=== PATIENT | male | born 1935 | race Caucasian/White ===

== ENCOUNTER → 2017-09-29 | Outpatient (CLI) | payer OTHER ==
[~2017-09-29] MED LIST: ABAT250V; ALBU90OI INH; AMLO5 PO; Allopurinol100 MG PO; Azopt10 ML RIGHTEYE; CEFD300 PO; Combigan Eye Dro5 ML; Combigan Eye Dro5 ML RIGHTEYE; LISI20 PO; METF500 PO; METO50ER PO; Omeprazole20 M1 PO; SIMV40 PO; SITA100T2 PO; TAMS.4ER PO; XARELTO20 MG PO
== END | disposition home or self-care (01) ==
LOC: LAB 11:31
DX: H16.002 Unspecified corneal ulcer, left eye (principal)
CPT/HCPCS: 87070; 87205

== ENCOUNTER 2017-12-20 11:19 | Inpatient (IN) | payer OTHER ==
[~2017-12-20] VITALS: Ht 180.3 cm; Wt 102.1 kg
[2017-12-20 11:49] LABS: BASOPHILS ABSOLUTE AUTO 0.03 K/mm3 (0.00-0.23); BASOPHILS PERCENT AUTO 0 % (0-2); EOSINOPHILS ABSOLUTE AUTO 0.07 K/mm3 (0.00-0.68); EOSINOPHILS PERCENT AUTO 1 % (0-6); Hematocrit 46.4 % (37.0-53.0); Hemoglobin 15.2 g/dL (13.5-17.5); IMMATURE GRAN ABSOLUTE AUTO 0.02 K/mm3 (0.00-0.10); IMMATURE GRAN PERCENT AUTO 0 % (0-1); LYMPHOCYTES ABSOLUTE AUTO 0.64 K/mm3 (0.84-5.20); LYMPHOCYTES PERCENT AUTO 8 % (21-46); MONOCYTES ABSOLUTE AUTO 0.34 K/mm3 (0.16-1.47); MONOCYTES PERCENT AUTO 4 % (4-13); Mean Corpuscular HGB 27.5 pg (26.0-34.0); Mean Corpuscular HGB Conc 32.8 g/dL (31.5-36.5); Mean Corpuscular Volume 84 fL (80-100); NEUTROPHILS ABSOLUTE AUTO 7.18 K/mm3 (1.96-9.15); NEUTROPHILS PERCENT AUTO 87 % (41-73); RDW Coefficient Variation 13.1 % (11.7-14.2); RDW Standard Deviation 40.3 fL (35.1-46.3); Red Blood Cell Count 5.52 M/mm3 (4.30-5.90); White Blood Cell Count 8.28 K/mm3 (4.00-11.30)
[2017-12-20 11:58] LABS: Mean Platelet Volume 10.5 fL (9.1-12.4); Platelet Count 119 K/mm3 (150-400)
[2017-12-20 12:05] LABS: Alanine Aminotransfer (ALT/SGP 19 U/L (12-78); Albumin, Blood 3.4 g/dL (3.4-5.0); Alk Phos 66 U/L (50-136); Anion Gap 9 mmol/L (6-16); Aspartate Aminotrans (AST/SGOT 13 U/L (12-37); Bilirubin, Total 0.5 mg/dL (0.1-1.0); Blood Urea Nitrogen 24 mg/dL (8-24); Bun/Creatinine Ratio 29.6 (12.0-20.0); CO2, Blood 22 mmol/L (21-32); Calcium, Blood 8.7 mg/dL (8.5-10.1); Chloride, Blood 108 mmol/L (98-108); Creatinine, Blood 0.81 mg/dL (0.60-1.20); Globulin, Blood 3.4 g/dL (2.2-4.0); Glomerular Filtration Rate >60 (60-); Glucose, Blood 204 mg/dL (70-99); Potassium, Blood 4.1 mmol/L (3.5-5.5); Sodium, Blood 139 mmol/L (136-145); Total Protein, Blood 6.8 g/dL (6.4-8.2)
[2017-12-20 12:06] LABS: Source, Urine Catheter
[2017-12-20 12:11] LABS: International Normalized Ratio 1.01; Prothrombin Time Results 10.5 Sec (9.7-11.5)
[2017-12-20 12:35] LABS: Bilirubin, Urine Neg (Neg); Blood, Urine 2+ (Neg); Glucose Qualitative, Urine Neg (Neg); Ketones, Urine Neg (Neg); Leukocyte Esterase, Urine Neg (Neg); Nitrite, Urine Neg (Neg); Protein, Urine 3+ (Neg); Urobilinogen, Urine NORM (Normal)
[2017-12-20 12:56] LABS: Appearance, Urine Clear (Clear); Color, Urine Yellow (P-Yellow)
[2017-12-20 12:58] LABS: White Blood Cells, Urine 0-2 /hpf (0-5)
[2017-12-20 12:59] LABS: Bacteria Few /hpf; Squamous Epithelial Cells Few /hpf (Few)
[2017-12-20] MEDS ORDERED: SITA100T2 PO (14:52)
[2017-12-20] MEDS ORDERED: AMLO5 PO (14:52)
[2017-12-20] MEDS ORDERED: SIMV40 PO (14:52)
[2017-12-20] MEDS ORDERED: Combigan Eye Dro5 ML (14:52)
[2017-12-20] MEDS ORDERED: TAMS.4ER PO (14:53)
[2017-12-20] MEDS ORDERED: LISI20 PO (14:53)
[2017-12-20] MEDS ORDERED: METF500 PO (14:53)
[2017-12-20] MEDS ORDERED: Omeprazole20 M1 PO (14:54)
[2017-12-20] MEDS ORDERED: Combigan Eye Dro5 ML RIGHTEYE (17:53)
[2017-12-20] MEDS ORDERED: ABAT250V (17:54)
[2017-12-20] MEDS ORDERED: Azopt10 ML RIGHTEYE (17:54)
[2017-12-21 05:19] LABS: BASOPHILS ABSOLUTE AUTO 0.05 K/mm3 (0.00-0.23); BASOPHILS PERCENT AUTO 0 % (0-2); EOSINOPHILS ABSOLUTE AUTO 0.06 K/mm3 (0.00-0.68); EOSINOPHILS PERCENT AUTO 0 % (0-6); Hematocrit 38.1 % (37.0-53.0); Hemoglobin 12.5 g/dL (13.5-17.5); IMMATURE GRAN ABSOLUTE AUTO 0.05 K/mm3 (0.00-0.10); IMMATURE GRAN PERCENT AUTO 0 % (0-1); LYMPHOCYTES ABSOLUTE AUTO 1.28 K/mm3 (0.84-5.20); LYMPHOCYTES PERCENT AUTO 10 % (21-46); MONOCYTES PERCENT AUTO 5 % (4-13); Mean Corpuscular HGB 27.7 pg (26.0-34.0); Mean Corpuscular HGB Conc 32.8 g/dL (31.5-36.5); Mean Corpuscular Volume 84 fL (80-100); Mean Platelet Volume 10.5 fL (9.1-12.4); NEUTROPHILS ABSOLUTE AUTO 11.42 K/mm3 (1.96-9.15); NEUTROPHILS PERCENT AUTO 85 % (41-73); Platelet Count 159 K/mm3 (150-400); RDW Coefficient Variation 13.2 % (11.7-14.2); Red Blood Cell Count 4.52 M/mm3 (4.30-5.90); White Blood Cell Count 13.46 K/mm3 (4.00-11.30)
[2017-12-21 05:49] LABS: Uric Acid, Blood 5.1 mg/dL (3.5-7.2)
[2017-12-21 06:15] LABS: Alanine Aminotransfer (ALT/SGP 12 U/L (12-78); Albumin, Blood 2.6 g/dL (3.4-5.0); Albumin/Globulin Ratio 0.9 (0.8-1.8); Alk Phos 46 U/L (50-136); Anion Gap 8 mmol/L (6-16); Aspartate Aminotrans (AST/SGOT 11 U/L (12-37); Bilirubin, Total 0.7 mg/dL (0.1-1.0); Blood Urea Nitrogen 19 mg/dL (8-24); Bun/Creatinine Ratio 23.5 (12.0-20.0); CO2, Blood 23 mmol/L (21-32); Calcium, Blood 7.7 mg/dL (8.5-10.1); Chloride, Blood 110 mmol/L (98-108); Creatinine, Blood 0.81 mg/dL (0.60-1.20); Glomerular Filtration Rate >60 (60-); Glucose, Blood 112 mg/dL (70-99); Potassium, Blood 3.9 mmol/L (3.5-5.5); Sodium, Blood 141 mmol/L (136-145); Total Protein, Blood 5.6 g/dL (6.4-8.2)
[2017-12-23 05:14] LABS: BASOPHILS ABSOLUTE AUTO 0.04 K/mm3 (0.00-0.23); BASOPHILS PERCENT AUTO 0 % (0-2); EOSINOPHILS ABSOLUTE AUTO 0.26 K/mm3 (0.00-0.68); EOSINOPHILS PERCENT AUTO 3 % (0-6); Hematocrit 37.8 % (37.0-53.0); Hemoglobin 12.4 g/dL (13.5-17.5); IMMATURE GRAN ABSOLUTE AUTO 0.05 K/mm3 (0.00-0.10); IMMATURE GRAN PERCENT AUTO 1 % (0-1); LYMPHOCYTES ABSOLUTE AUTO 1.02 K/mm3 (0.84-5.20); LYMPHOCYTES PERCENT AUTO 10 % (21-46); MONOCYTES ABSOLUTE AUTO 0.76 K/mm3 (0.16-1.47); MONOCYTES PERCENT AUTO 7 % (4-13); Mean Corpuscular HGB Conc 32.8 g/dL (31.5-36.5); Mean Corpuscular Volume 82 fL (80-100); Mean Platelet Volume 10.7 fL (9.1-12.4); NEUTROPHILS ABSOLUTE AUTO 8.39 K/mm3 (1.96-9.15); NEUTROPHILS PERCENT AUTO 80 % (41-73); Platelet Count 175 K/mm3 (150-400); RDW Coefficient Variation 13.1 % (11.7-14.2); RDW Standard Deviation 39.1 fL (35.1-46.3); White Blood Cell Count 10.52 K/mm3 (4.00-11.30)
[2017-12-23 05:41] LABS: Alanine Aminotransfer (ALT/SGP 13 U/L (12-78); Albumin, Blood 2.5 g/dL (3.4-5.0); Albumin/Globulin Ratio 0.7 (0.8-1.8); Alk Phos 55 U/L (50-136); Anion Gap 8 mmol/L (6-16); Aspartate Aminotrans (AST/SGOT 13 U/L (12-37); Bilirubin, Total 0.7 mg/dL (0.1-1.0); Blood Urea Nitrogen 16 mg/dL (8-24); Bun/Creatinine Ratio 18.6 (12.0-20.0); CO2, Blood 26 mmol/L (21-32); Calcium, Blood 8.2 mg/dL (8.5-10.1); Chloride, Blood 105 mmol/L (98-108); Creatinine, Blood 0.86 mg/dL (0.60-1.20); Globulin, Blood 3.8 g/dL (2.2-4.0); Glomerular Filtration Rate >60 (60-); Glucose, Blood 117 mg/dL (70-99); Potassium, Blood 3.6 mmol/L (3.5-5.5); Sodium, Blood 139 mmol/L (136-145); Total Protein, Blood 6.3 g/dL (6.4-8.2)
[2017-12-23] MEDS ORDERED: XARELTO20 MG PO (09:39)
[2017-12-23] MEDS ORDERED: Allopurinol100 MG PO (09:47)
[2017-12-23] MEDS ORDERED: ALBU90OI INH (09:47)
[2017-12-23] MEDS ORDERED: CEFD300 PO (09:48)
[2017-12-23] MEDS ORDERED: METO50ER PO (09:49)
== END 2017-12-23 10:53 | disposition home or self-care (01) | DRG 871 ==
LOC: ER 11:19 → MEDS 12:57
PROVIDERS: Emergency Medicine; Internal Medicine
DX: A41.9 Sepsis, unspecified organism (principal); J18.9 Pneumonia, unspecified organism; J96.01 Acute respiratory failure with hypoxia; G93.41 Metabolic encephalopathy; I50.33 Acute on chronic diastolic (congestive) heart failure; R65.20 Severe sepsis without septic shock; I48.2 Chronic atrial fibrillation; M19.90 Unspecified osteoarthritis, unspecified site; I11.0 Hypertensive heart disease with heart failure; I35.0 Nonrheumatic aortic (valve) stenosis; E66.9 Obesity, unspecified; H54.7 Unspecified visual loss; Z51.5 Encounter for palliative care; H40.9 Unspecified glaucoma; K21.9 Gastro-esophageal reflux disease without esophagitis; E78.5 Hyperlipidemia, unspecified; N40.0 Benign prostatic hyperplasia without lower urinary tract symptoms; M10.9 Gout, unspecified; Z79.84 Long term (current) use of oral hypoglycemic drugs; Z79.899 Other long term (current) drug therapy
CPT/HCPCS: 36415; 71046; 80053; 81001; 82607; 82746; 82947; 83036; 83605; 83880; 84443; 84550; 85025; 85610; 85730; 87086; 93005; 93010; 93306; 94760; 96365; 96366; 96368; 97110; 97116; 97162; 97166; 97535; 99285; A9270; G8978; G8979; G8987; G8988; J0456; J0696; J1940; J7030; J7050

== ENCOUNTER 2019-01-24 17:35 | Inpatient (IN) | payer OTHER ==
[~2019-01-24] VITALS: Ht 175.3 cm; Wt 73.3 kg
[~2019-01-24 17:35] MED LIST changes: -ACET325 PO; -INSULANPEN SC; -METO50 PO
[2019-01-24 18:29] LABS: Base Excess Venous -5.9 mmol/L; Bicarbonate Venous 20.6 mmol/L (24.0-30.0); PCO2 Venous 32.4 mmHg (38-42); PO2 Venous 83.7 mmHg (38-42); pH Blood Venous 7.38 (7.34-7.37)
[2019-01-24 18:38] LABS: BASOPHILS ABSOLUTE AUTO 0.04 K/mm3 (0.00-0.23); BASOPHILS PERCENT AUTO 0 % (0-2); EOSINOPHILS PERCENT AUTO 0 % (0-6); Hematocrit 54.2 % (37.0-53.0); Hemoglobin 16.8 g/dL (13.5-17.5); IMMATURE GRAN ABSOLUTE AUTO 0.05 K/mm3 (0.00-0.10); IMMATURE GRAN PERCENT AUTO 0 % (0-1); LYMPHOCYTES ABSOLUTE AUTO 1.05 K/mm3 (0.84-5.20); LYMPHOCYTES PERCENT AUTO 7 % (21-46); MONOCYTES ABSOLUTE AUTO 0.72 K/mm3 (0.16-1.47); MONOCYTES PERCENT AUTO 5 % (4-13); Mean Corpuscular HGB 27.5 pg (26.0-34.0); Mean Corpuscular Volume 89 fL (80-100); Mean Platelet Volume 11.8 fL (9.1-12.4); NEUTROPHILS ABSOLUTE AUTO 12.36 K/mm3 (1.96-9.15); NEUTROPHILS PERCENT AUTO 87 % (41-73); Platelet Count 187 K/mm3 (150-400); RDW Coefficient Variation 13.2 % (11.7-14.2); RDW Standard Deviation 42.9 fL (35.1-46.3); Red Blood Cell Count 6.12 M/mm3 (4.30-5.90); White Blood Cell Count 14.22 K/mm3 (4.00-11.30)
[2019-01-24 18:58] LABS: Albumin, Blood 3.5 g/dL (3.4-5.0); Albumin/Globulin Ratio 0.8 (0.8-1.8); Bilirubin, Total 0.4 mg/dL (0.1-1.0); Bun/Creatinine Ratio 43.6 (12.0-20.0); Calcium, Blood 9.4 mg/dL (8.5-10.1); Creatinine, Blood 1.4 mg/dL (0.60-1.20); Globulin, Blood 4.5 g/dL (2.2-4.0); Potassium, Blood 4.6 mmol/L (3.5-5.5)
[2019-01-24 20:03] LABS: Source, Urine Clean Catch
[2019-01-24 20:22] LABS: Bilirubin, Urine Neg (Neg); Blood, Urine 2+ (Neg); Glucose Qualitative, Urine 4+ (Neg); Ketones, Urine 3+ (Neg); Leukocyte Esterase, Urine Neg (Neg); Nitrite, Urine Neg (Neg); Protein, Urine 3+ (Neg); Specific Gravity, Urine 1.015 (1.003-1.022); Urobilinogen, Urine NORM (Normal)
[2019-01-24 20:27] LABS: Appearance, Urine Clear (Clear); Color, Urine Yellow (P-Yellow)
[2019-01-24 20:28] LABS: Amorphous Light (0-Heavy); Bacteria Not Seen /hpf; Red Blood Cells, Urine 0-2 /hpf (0-2); Squamous Epithelial Cells Rare /hpf (Few); White Blood Cells, Urine Not Seen /hpf (0-5)
[2019-01-24 20:49] LABS: Glucose, Blood 641 mg/dL (70-99)
--- NOTE | 2019-01-24 22:24 | NUR ---
transfer report from SOFTWARE ENGINEER WEB SERVICESBRIAN Granger on PT being admitted with elevated BG was greater than 600 on ER presentation and last 475 to be rechecked prior to coming to floor. recent multiple falls and increased confusion. Reported to be legally blind and has eyeglasses with him. Full code reported no AD or Polst per report. Will await admission and have fall precautions.
--- NOTE | 2019-01-25 04:21 | NUR ---
83 year old Male with hx of type 2 diabetes, chronic afib, pneumonia, blindness, acute kidney injury , hypertension, chf and dementia was admitted after his Granddtr brought him to primary care provider for failure to thrive with multiple falls last 4 days. pt unable to give accurate history due to dementia but reported to have refused to take any rx for last year. had bolld glucose over 660 in ER. had 5 units of insulin x 2 and 5 more units given when PT admitted to floor. had last BG 388. Had 2 l NS fluid bolus and continue on NS at 100 ml HR. Fall precautions in place PT set off bed alarm multiple times attempting to climb out of bed unassisted. he says he needs to void each time. uses urinal with assist incontinent at times. Pleasantly confused. continue to assess.
[2019-01-25 06:00] LABS: Anion Gap 11 mmol/L (6-16); Blood Urea Nitrogen 52 mg/dL (8-24); CO2, Blood 24 mmol/L (21-32); Calcium, Blood 8.3 mg/dL (8.5-10.1); Chloride, Blood 117 mmol/L (98-108); Creatinine, Blood 1.13 mg/dL (0.60-1.20); Glomerular Filtration Rate >60 (60-); Glucose, Blood 415 mg/dL (70-99); Potassium, Blood 4.2 mmol/L (3.5-5.5); Sodium, Blood 152 mmol/L (136-145)
--- NOTE | 2019-01-25 06:06 | NUR ---
DR LUZ called about PTS blood glucose 372 via bg and 415 via lab check. one time order for humalog lispro 6 units now and recheck bg 2 hours after insulin.
[2019-01-25 09:17] LABS: International Normalized Ratio 0.95; Prothrombin Time Results 10.1 Sec (9.7-11.5)
--- NOTE | 2019-01-25 14:42 | NUR ---
Spiritual care visit conducted. Patient is lying in bed and alert. Patient has no idea where he is or why he is here. Patient has a great sense of humor and is very talkative. Patient loves to tell stories but stuggles with dates, names and places. 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 Patient appeared to be having a great time telling stories and making himself laugh (which of course made the stories that much more humorous). I listened empathically, provided companionship, normalized patient's experience and reinforced helpful attitudes and practices. Patient showed signs of an elevated mood.
--- NOTE | 2019-01-25 19:59 | NUR ---
PT. BEEN IN BED ALL DAY, TURNS SELF,DOES NOT USE CALL LIGHT, VERY PLEASANT WITH A GOOD SENSE OF HUMOR. BFA ARE COVERED WITH BRUISES.
--- NOTE | 2019-01-26 04:41 | NUR ---
COLUMNIST/COMMENTATOR SUMMARY NO ACUTE CHANGES THIS SHIFT. PT AAOX2 WITH INTERMITTENT CONFUSION BUT IS PLEASANT AND EASILY REORIENTED. PT DOES ATTEMPT TO GET OUT OF BED WITHOUT ASSISTANCE TO USE URINAL SO BED ALARM IS ON FOR SAFETY. CONTINUES ON 1/2NS THROUGH THE NIGHT. PT DENIES SOB, N/V, PAIN. VSS, WILL CONTINUE TO MONITOR.
[2019-01-26 05:07] LABS: BASOPHILS ABSOLUTE AUTO 0.03 K/mm3 (0.00-0.23); BASOPHILS PERCENT AUTO 0 % (0-2); EOSINOPHILS ABSOLUTE AUTO 0.17 K/mm3 (0.00-0.68); EOSINOPHILS PERCENT AUTO 2 % (0-6); Hematocrit 42.6 % (37.0-53.0); Hemoglobin 13.3 g/dL (13.5-17.5); IMMATURE GRAN ABSOLUTE AUTO 0.02 K/mm3 (0.00-0.10); IMMATURE GRAN PERCENT AUTO 0 % (0-1); LYMPHOCYTES ABSOLUTE AUTO 1.81 K/mm3 (0.84-5.20); LYMPHOCYTES PERCENT AUTO 23 % (21-46); MONOCYTES ABSOLUTE AUTO 0.44 K/mm3 (0.16-1.47); MONOCYTES PERCENT AUTO 6 % (4-13); Mean Corpuscular HGB 27.9 pg (26.0-34.0); Mean Corpuscular HGB Conc 31.2 g/dL (31.5-36.5); Mean Corpuscular Volume 90 fL (80-100); Mean Platelet Volume 11.3 fL (9.1-12.4); NEUTROPHILS ABSOLUTE AUTO 5.31 K/mm3 (1.96-9.15); NEUTROPHILS PERCENT AUTO 68 % (41-73); Platelet Count 112 K/mm3 (150-400); RDW Coefficient Variation 12.8 % (11.7-14.2); RDW Standard Deviation 42.3 fL (35.1-46.3); Red Blood Cell Count 4.76 M/mm3 (4.30-5.90); White Blood Cell Count 7.78 K/mm3 (4.00-11.30)
[2019-01-26 05:36] LABS: Alanine Aminotransfer (ALT/SGP 25 U/L (12-78); Albumin, Blood 2.4 g/dL (3.4-5.0); Albumin/Globulin Ratio 0.8 (0.8-1.8); Alk Phos 54 U/L (50-136); Anion Gap 6 mmol/L (6-16); Aspartate Aminotrans (AST/SGOT 23 U/L (12-37); Bilirubin, Total 0.8 mg/dL (0.1-1.0); Blood Urea Nitrogen 35 mg/dL (8-24); CO2, Blood 26 mmol/L (21-32); Calcium, Blood 7.6 mg/dL (8.5-10.1); Chloride, Blood 115 mmol/L (98-108); Creatinine, Blood 0.95 mg/dL (0.60-1.20); Globulin, Blood 2.9 g/dL (2.2-4.0); Glomerular Filtration Rate >60 (60-); Glucose, Blood 113 mg/dL (70-99); Potassium, Blood 3.7 mmol/L (3.5-5.5); Sodium, Blood 147 mmol/L (136-145); Total Protein, Blood 5.3 g/dL (6.4-8.2)
--- NOTE | 2019-01-26 14:45 | NUR ---
Spiritual care visit conducted. Patient is sitting on a chair and alert. Patient is sarcastic, opinionated and kind in his own way. His story telling maybe off abit or I misunderstood. Yesterday, I thought he told me he had a son that is still alive and today he told me he had no children but that his of a heart attack. I explored patient's belief system (he is not much for episcopalian), I learned much about patient's childhood (patient had much to say about his father and the respect he had for him) and we talked about and dying. Patient is a little unsure about the idea of life after but he did agree with having me say a prayer for him, which I gladly did. The visit ended well with patient showing signs of increased peace.
--- NOTE | 2019-01-26 18:44 | NUR ---
NO ACUTE CHANGES THIS SHIFT. PATIENT SHOULD BE DISCHARGED OVER THE WEEKEND. HE HAS HAD NO COMPLAINTS OF PAIN OR SOB, NV THIS SHIFT. HE IS FRIENDLY AND COOPERATIVE WITH STAFF AND IS REDIRECTABLE WHEN NEEDED.
[2019-01-27 05:42] LABS: BASOPHILS ABSOLUTE AUTO 0.03 K/mm3 (0.00-0.23); BASOPHILS PERCENT AUTO 1 % (0-2); EOSINOPHILS ABSOLUTE AUTO 0.23 K/mm3 (0.00-0.68); EOSINOPHILS PERCENT AUTO 4 % (0-6); Hematocrit 41.8 % (37.0-53.0); Hemoglobin 13.5 g/dL (13.5-17.5); IMMATURE GRAN ABSOLUTE AUTO 0.02 K/mm3 (0.00-0.10); IMMATURE GRAN PERCENT AUTO 0 % (0-1); LYMPHOCYTES ABSOLUTE AUTO 1.07 K/mm3 (0.84-5.20); LYMPHOCYTES PERCENT AUTO 17 % (21-46); MONOCYTES ABSOLUTE AUTO 0.39 K/mm3 (0.16-1.47); MONOCYTES PERCENT AUTO 6 % (4-13); Mean Corpuscular HGB 28.4 pg (26.0-34.0); Mean Corpuscular HGB Conc 32.3 g/dL (31.5-36.5); Mean Corpuscular Volume 88 fL (80-100); Mean Platelet Volume 11.5 fL (9.1-12.4); NEUTROPHILS ABSOLUTE AUTO 4.55 K/mm3 (1.96-9.15); NEUTROPHILS PERCENT AUTO 72 % (41-73); Platelet Count 113 K/mm3 (150-400); RDW Coefficient Variation 12.5 % (11.7-14.2); RDW Standard Deviation 40.7 fL (35.1-46.3); Red Blood Cell Count 4.75 M/mm3 (4.30-5.90); White Blood Cell Count 6.29 K/mm3 (4.00-11.30)
[2019-01-27 05:59] LABS: Alanine Aminotransfer (ALT/SGP 24 U/L (12-78); Albumin, Blood 2.4 g/dL (3.4-5.0); Albumin/Globulin Ratio 0.8 (0.8-1.8); Alk Phos 55 U/L (50-136); Anion Gap 5 mmol/L (6-16); Aspartate Aminotrans (AST/SGOT 24 U/L (12-37); Bilirubin, Total 0.4 mg/dL (0.1-1.0); Blood Urea Nitrogen 28 mg/dL (8-24); Bun/Creatinine Ratio 32.6 (12.0-20.0); CO2, Blood 25 mmol/L (21-32); Calcium, Blood 7.9 mg/dL (8.5-10.1); Chloride, Blood 115 mmol/L (98-108); Creatinine, Blood 0.86 mg/dL (0.60-1.20); Globulin, Blood 3.1 g/dL (2.2-4.0); Glomerular Filtration Rate >60 (60-); Glucose, Blood 146 mg/dL (70-99); Sodium, Blood 145 mmol/L (136-145); Total Protein, Blood 5.5 g/dL (6.4-8.2)
--- NOTE | 2019-01-27 06:27 | NUR ---
SHIFT SUMMARY PATIENT IS ALERT AND CONFUSED AT TIMES. PT IS LEGALLY BLIND IN BOTH EYES. ALSO DEAF. PATIENT IS A SBA WITH WALKER TO BATHROOM. PATIENT HAS BEEN CONTINENT THROUGHOUT THE NIGHT. DOES NOT USE CALL LIGHT APPROPRIATE, HE JUST GETS OUT OF BED. BED ALARM ON. PT DOES COMPLAIN OF SOME RIB PAIN WITH MOVEMENT. NO NEW CHANGES, VITALS STABLE
[2019-01-27] MEDS ORDERED: INSULANPEN SC (09:59)
[2019-01-27] MEDS ORDERED: ACET325 PO (09:59)
[2019-01-27] MEDS ORDERED: METO50 PO (10:00)
--- NOTE | 2019-01-27 11:58 | NUR ---
NURSE ATTEMPTED TO CALL PT'S BHARGAVI CARLISLE AT THE [phone] NUMBER PER CHART. NO ANSWER. NURSE LEFT MESSAGE TO PLEASE RETURN CALL. NURSE WANTED TO NOTIFY HER OF PT DISCHARGE TO SNF AND ANSWER ANY QUESTIONS THAT SHE HAS.
--- NOTE | 2019-01-27 12:20 | NUR ---
DISCHARGE NOTE PT [facility] TO [facility]. PT LEFT ROOM JUST PRIOR TO NOTE. REPORT CALLED AND GIVEN TO MORGAN AT 1216. IV DC'D AND BELONINGS RETURNED. PT'S DENTURES IN HIS MOUTH AT TRANSFER.
== END 2019-01-27 12:24 | DRG 637 ==
LOC: ER 17:35 → MEDS 17:36 → ENPENDDIS 01-27 09:34 → MEDS 01-27 12:24
PROVIDERS: Family Medicine; Nurse Practitioner Acute Care; Physician Assistant; ADMIT Hospitalist
DX: E11.00 Type 2 diabetes mellitus with hyperosmolarity without nonketotic hyperglycemic-hyperosmolar coma (NKHHC) (principal); G93.41 Metabolic encephalopathy; N17.9 Acute kidney failure, unspecified; E87.0 Hyperosmolality and hypernatremia; I35.0 Nonrheumatic aortic (valve) stenosis; I10 Essential (primary) hypertension; G30.9 Alzheimer's disease, unspecified; F02.80 Dementia in other diseases classified elsewhere, unspecified severity, without behavioral disturbance, psychotic disturbance, mood disturbance, and anxiety; H54.62 Unqualified visual loss, left eye, normal vision right eye; I48.2 Chronic atrial fibrillation; Z91.14 Patient's other noncompliance with medication regimen; K21.9 Gastro-esophageal reflux disease without esophagitis; Z87.891 Personal history of nicotine dependence; E11.319 Type 2 diabetes mellitus with unspecified diabetic retinopathy without macular edema; E86.9 Volume depletion, unspecified; Z86.73 Personal history of transient ischemic attack (TIA), and cerebral infarction without residual deficits; F10.20 Alcohol dependence, uncomplicated; R62.7 Adult failure to thrive; Z66 Do not resuscitate; F32.9 Major depressive disorder, single episode, unspecified; G47.00 Insomnia, unspecified; Z68.23 Body mass index [BMI] 23.0-23.9, adult
CPT/HCPCS: 36415; 70450; 71046; 80048; 80053; 81001; 82550; 82803; 82947; 83036; 83735; 85025; 85610; 93005; 93010; 93306; 94760; 96360; 97162; 97165; 97530; 97535; 99285-25; J1650; J1815; J7030

== ENCOUNTER → 2019-01-24 | Outpatient (CLI) | payer OTHER ==
[~2019-01-24] MED LIST changes: +ACET325 PO; +INSULANPEN SC; +METO50 PO
== END | disposition home or self-care (01) ==
LOC: LAB EV 16:45 → LAB SHORT 16:45
DX: R39.81 Functional urinary incontinence (principal)
CPT/HCPCS: 87086

== ENCOUNTER 2019-02-20 22:30 | Emergency (ER) | payer OTHER ==
[~2019-02-20] VITALS: Ht 182.9 cm; Wt 90.7 kg
[~2019-02-20 22:30] MED LIST changes: +ACET325 PO; +INSULANPEN SC; +METO50 PO
[2019-02-20] MEDS ORDERED: Humalog100 UNIT/3 SC ×3 (22:40→23:00)
[2019-02-20] MEDS ORDERED: INSULANPEN SC ×2 (22:56→22:59)
[2019-02-20] MEDS ORDERED: METO50 PO ×2 (22:56→23:00)
[2019-02-20] MEDS ORDERED: ACET325 PO ×2 (22:56→22:59)
== END 2019-02-20 23:54 | disposition home or self-care (01) ==
LOC: ER 22:30
DX: I48.91 Unspecified atrial fibrillation (principal); E11.9 Type 2 diabetes mellitus without complications; I10 Essential (primary) hypertension; Z76.0 Encounter for issue of repeat prescription; Z79.4 Long term (current) use of insulin; Z79.899 Other long term (current) drug therapy; K21.9 Gastro-esophageal reflux disease without esophagitis; E78.5 Hyperlipidemia, unspecified; Z87.891 Personal history of nicotine dependence
CPT/HCPCS: 82947; 96372; 99283-25; J1885

== ENCOUNTER 2019-02-21 13:52 | Emergency (ER) | payer OTHER ==
[~2019-02-21] VITALS: Ht 175.3 cm; Wt 88.5 kg
[~2019-02-21 13:52] MED LIST changes: +Humalog100 UNIT/3 SC
--- NOTE | 2019-02-21 15:24 | NUR ---
Initial Visit: ED Palliative Care Consult for Goals of Care. Spoke with Dr Gonzalez and she reports Pt's prognosis is poor and may be actively dying. Pt is resting in gurney and is non responsive. Increased respiration noted at 28/min, skin is pallor and cool to the touch. Pt's grandchildren Brooklyn is present during visit. Listened as family discussed Pt's wishes. They report Pt has been ready for and has been discussing this with family for quite some time. Family reports Pt has not been wanting to live in his current condition and was considering hospice recently. Encouraged family to express concerns and fears. Both Ibeth and Nasim report they do not want their grandfather to suffer anymore. Validated concerns and offered emotional support. Educated family on comfort care philosophy with V/U made by Brooklyn. Family is agreeable for Pt to be admitted on comfort care. Discussed the importance of home decision and gave family a list of homes. Family inquires if [place] covers any of the cost for exprenses. No other concerns reported at this time. [place] and obtained information. Relayed information to family. Spoke with Dr Gonzalez regarding family's wishes for Pt to be admitted on comfort care. Dr Gonzalez is agreeable with plan. Reported Pt's increased respiration rate and appearance of air hunger. Dr Gonzalez reports she will order Roxinol. Plan: Pt will be admitted on comfort care. Pt appears to be imminent. Palliative Care will remain available.
== END 2019-02-21 17:38 ==
LOC: ER 13:52
DX: R40.20 Unspecified coma (principal); I48.91 Unspecified atrial fibrillation; I10 Essential (primary) hypertension; E11.9 Type 2 diabetes mellitus without complications; K21.9 Gastro-esophageal reflux disease without esophagitis; N40.0 Benign prostatic hyperplasia without lower urinary tract symptoms; E78.5 Hyperlipidemia, unspecified; M19.90 Unspecified osteoarthritis, unspecified site; Z87.891 Personal history of nicotine dependence; Z79.4 Long term (current) use of insulin; Z79.899 Other long term (current) drug therapy
CPT/HCPCS: 99285